=== PATIENT | female | born 1935 | race Caucasian/White ===

== ENCOUNTER 2021-09-16 11:17 | Observation (INO) ==
[2021-09-16 13:55] LABS: BASOPHILS % (AUTO) 0.5 % (0.2-1.0); EOSINOPHILS # (AUTO) 0.3 x10^3/uL (0.0-0.2); EOSINOPHILS % (AUTO) 4.7 % (0.9-2.9); HEMATOCRIT 36.5 % (36.0-47.0); HEMOGLOBIN 12.2 g/dL (12.0-16.0); LYMPHOCYTES # (AUTO) 1.1 X10^3/uL (1.3-2.9); LYMPHOCYTES % (AUTO) 15.6 % (21.0-51.0); MEAN CORPUSCULAR HEMOGLOBIN 29.4 pg (27.0-34.0); MEAN CORPUSCULAR HGB CONC 33.4 g/dL (33.0-35.0); MEAN PLATELET VOLUME 11.4 fL (7.4-11.0); MONOCYTES # (AUTO) 0.7 x10^3/uL (0.3-0.8); MONOCYTES % (AUTO) 9.2 % (0.0-13.0); NEUTROPHILS # (AUTO) 5.1 x10^3/uL (2.2-4.8); RED BLOOD COUNT 4.15 X10^6/uL (3.5-5.4); RED CELL DISTRIBUTION WIDTH 13.8 % (11.6-16.5); WHITE BLOOD COUNT 7.2 X10^3/uL (3.6-10.0)
[2021-09-16] MEDS ORDERED: MORPHINE SULFATE INJ 2 MG INJ ONE (14:17)
[2021-09-16] MEDS: MORPHINE SULFATE INJ 2 MG INJ IVP PRN (14:20)
[2021-09-16 14:35] LABS: BILIRUBIN,URINE NEGATIVE (NEGATIVE); BLOOD/HEMOGLOBIN,URINE 1+ (NEGATIVE); GLUCOSE, URINE NEGATIVE (NEGATIVE); KETONES,URINE NEGATIVE (NEGATIVE); LEUKOCYTE ESTERASE ,URINE 1+ (NEGATIVE); NITRITES,URINE NEGATIVE (NEGATIVE); PROTEIN,URINE 1+ (NEGATIVE); UROBILINOGEN,URINE NORMAL (NORMAL)
[2021-09-16 14:39] LABS: ALANINE AMINOTRANSFERASE 19 Units/L (12-78); ALBUMIN 3.2 g/dL (3.4-5.0); ALKALINE PHOSPHATASE 87 Units/L (46-116); ASPARTATE AMINO TRANSFERASE 20 Units/L (15-37); BLOOD UREA NITROGEN 18 mg/dL (7-18); CALCIUM 9.1 mg/dL (8.5-10.1); CARBON DIOXIDE 30.5 mmol/L (21-32); CHLORIDE 101 mmol/L (98-107); COR CA(FOR HYPOALB) 9.7 mg/dL (8.5-10.1); CREATININE 0.98 mg/dL (0.55-1.02); SODIUM 137 mmol/L (136-145); TOTAL PROTEIN 7.2 g/dL (6.4-8.2); eGFR NON BLACK RACES 57 (>60)
[2021-09-16 14:52] LABS: APPEARANCE,URINE CLEAR (CLEAR); COLOR,URINE AMBER (YELLOW)
[2021-09-16 14:56] LABS: BACTERIA,URINE TRACE /HPF (NEGATIVE); SQUAMOUS EPITHELIAL CELL,UR RARE /HPF (NEGATIVE)
--- NOTE | 2021-09-16 15:11 | CT ---
HISTORYRECENT FALL, AMSSTUDYBRAIN W/O CONCOMPARISONNone available.TECHNIQUEAxial non-contrast images of the head were obtained with coronal and sagittal reformats provided.Radiation dose: 1258.70 mGy-cm total DLPFINDINGSNo abnormal areas of acute attenuation in the brain parenchyma.Dillon-white differentiation remains intact.No intracranial, extra-axial, fluid collection.No hemorrhage.Periventricular chronic microvascular disease.No mass, mass effect or midline shift.Age related brain parenchymal global atrophy.No ventriculomegaly.No acute fracture.Sinuses are well aerated.Mastoid air cells are well aerated.Globes and intra-orbital contents are unremarkable.IMPRESSIONNo acute intracranial abnormality identified.Electronically signed by: Fidencio Lynn (September 16, 2021 15:10:39)
--- NOTE | 2021-09-16 15:22 | CT ---
HISTORYRECENT FALL, AMS, PAIN TO PELVIS/HIP AREASTUDYPELVIS W/O CONCOMPARISONRadiographs, September 14, 2021TECHNIQUENon-contrast axial CT images of the pelvis. Images were reformatted into coronal and sagittal planes for further evaluation.Radiation dose: 913.50 mGy-cm total DLPFINDINGSMildly displaced/impacted right subcapital femoral neck fracture.Atherosclerotic changes to the abdominal aorta and iliac vessels without aneurysm.Colonic diverticulosis.Mild degenerative disc and joint changes in the lower lumbar spine.IMPRESSIONMildly displaced/impacted right subcapital femoral neck fracture.Electronically signed by: Fidencio Lynn (September 16, 2021 15:22:46)
[2021-09-16] MEDS: NAMENDA TAB 10 MG PO SCH (16:35)
[2021-09-16] MEDS ORDERED: TYLENOL 325 MG TAB PO PRN (20:48)
[2021-09-16] MEDS ORDERED: COLACE CAP 100 MG PO SCH (21:00)
[2021-09-16] MEDS ORDERED: XANAX PO SCH (21:00)
[2021-09-16] MEDS ORDERED: MELATONIN PO SCH (21:00)
[2021-09-16] MEDS ORDERED: ARICEPT TAB 10 MG PO SCH (21:00)
[2021-09-17] MEDS ORDERED: SYNTHROID 50 mcg TAB PO SCH (06:30)
[2021-09-17 09:29] VITALS: BMI 23.6
--- NOTE | 2021-09-17 10:00 | DR.SSS ---
SHORT STAY SUMMARY Admission Date Date of Admission: 09/16/21 Discharge Date Discharge Date: 09/17/21 Admission Diagnoses Admission Diagnoses: AMS Fall Discharge Diagnoses Discharge Diagnoses: right femoral neck fracture altered mental status dementia Chief Complaint Chief Complaint: AMS and right hip pain History of Present Illness History of Present Illness: Ms Laila Man is a 86y/o female with a PMH of alzheimer's dementia, arthritis and hypothyroidism presented after having a fall at home on Sun09/14/21. Patient lives at home with a sitter. EMS was called and patient was taken to [facility] ER. She had a small laceration to the head to CT- brain was done which was negative. Patient was sent home but continued to have worsening confusion and right hip/leg pain. She was directly admitted from Dr Escobedo's [facility] for further evaluation. Pelvic CT showed right subcapital femoral neck fracture. No ortho nutrition services worker at [facility]. Patient was started on pain control. Dr Lockhart from [facility] was contacted and accepted patient for transfer for surgery. Initially, patient's daughter declined transfer and wanted to discuss with family regarding risks associated with surgery as patient does have dementia. This morning, family agreed to transfer and transfer line was contacted. Past Medical History Past Medical History: Alzheimers, Arthritis and Hypothyroidism Past Surgical History Surgical History: Hysterectomy and Ortho Surgery Allergies Allergies Allergy/AdvReac Type Severity Reaction Status Date / Time Penicillins Allergy Verified 07/06/20 12:46 Medications Home Medications: Penicillins Allergy (Verified 07/06/20 12:46) CONTINUE taking the following medications alprazolam 1 mg PO DAILY PRN 09/16/21 [History] donepezil 10 mg PO HS 09/16/21 [History] levothyroxine 50 mcg PO DAILY 09/16/21 [History] melatonin 10 mg PO HS 09/16/21 [History] memantine 10 mg PO DAILY 09/16/21 [History] Social History Does patient currently use any type of tobacco product: No Have you used tobacco products in the last 12 months: No Type of Tobacco Use: None Alcohol Use: None Drug Use: None Review of Systems Constitutional: No Symptoms Reported Eyes: No Symptoms Reported ENT: No Symptoms Reported Respiratory: No Symptoms Reported Cardiovascular: No Symptoms Reported Gastrointestinal: No Symptoms Reported Genitourinary: No Symptoms Reported Musculoskeletal: Leg Pain and Other (right hip ) Neurological: Confusion Physical Exam Vital Signs: Last Vital Signs Temp 97.9 F 09/17/21 03:52 Pulse 70 09/17/21 03:52 Resp 18 09/17/21 03:52 BP 169/73 09/17/21 03:52 Pulse Ox 95 09/17/21 03:52 Oriented: Not Oriented Eyes: Normal Ear: Normal Nose: Normal Throat: Normal Respiratory: Diminished Throughout Cardiovascular: Normal Auscultation: Bowel Sounds: Normal Palpation: Normal Tenderness: Normal Skin: Normal Musculoskeletal: Right and Hip Psychiatric: Normal Mood Description: Calm Affect: Normal Speech Pattern: Delayed Labs Labs: Laboratory Last Values WBC 7.2 X10^3/uL (3.6-10.0) 09/16/21 13:40 RBC 4.15 X10^6/uL (3.5-5.4) 09/16/21 13:40 Hgb 12.2 g/dL (12.0-16.0) 09/16/21 13:40 Hct 36.5 % (36.0-47.0) 09/16/21 13:40 MCV 88.0 fL (80.0-100.0) 09/16/21 13:40 MCH 29.4 pg (27.0-34.0) 09/16/21 13:40 MCHC 33.4 g/dL (33.0-35.0) 09/16/21 13:40 RDW 13.8 % (11.6-16.5) 09/16/21 13:40 Plt Count 181 X10^3/uL (150.0-450.0) 09/16/21 13:40 MPV 11.4 fL (7.4-11.0) H 09/16/21 13:40 Neut % (Auto) 70.0 % (42.0-75.0) 09/16/21 13:40 Lymph % (Auto) 15.6 % (21.0-51.0) L 09/16/21 13:40 [place] % (Auto) 9.2 % (0.0-13.0) 09/16/21 13:40 Eos % (Auto) 4.7 % (0.9-2.9) H 09/16/21 13:40 Baso % (Auto) 0.5 % (0.2-1.0) 09/16/21 13:40 Neut # (Auto) 5.1 x10^3/uL (2.2-4.8) H 09/16/21 13:40 Lymph # (Auto) 1.1 X10^3/uL (1.3-2.9) L 09/16/21 13:40 [place] # (Auto) 0.7 x10^3/uL (0.3-0.8) 09/16/21 13:40 Eos # (Auto) 0.3 x10^3/uL (0.0-0.2) H 09/16/21 13:40 Baso # (Auto) 0.0 X10^3/uL (0.0-0.1) 09/16/21 13:40 Absolute Nucleated RBC 0.1 /100WBC 09/16/21 13:40 Sodium 137 mmol/L (136-145) 09/16/21 14:15 Corrected Sodium TNP 09/16/21 14:15 Potassium 4.0 mmol/L (3.5-5.1) 09/16/21 14:15 Chloride 101 mmol/L (98-107) 09/16/21 14:15 Carbon Dioxide 30.5 mmol/L (21-32) 09/16/21 14:15 BUN 18 mg/dL (7-18) 09/16/21 14:15 Creatinine 0.98 mg/dL (0.55-1.02) 09/16/21 14:15 Est GFR (MDRD) Af Amer > 60 (>60) 09/16/21 14:15 Est GFR (MDRD) Non-Af 57 (>60) L 09/16/21 14:15 Glucose 99 mg/dL (65-99) 09/16/21 14:15 Calcium 9.1 mg/dL (8.5-10.1) 09/16/21 14:15 Corrected Calcium 9.7 mg/dL (8.5-10.1) 09/16/21 14:15 Total Bilirubin 0.60 mg/dL (0.2-1.0) 09/16/21 14:15 AST 20 Units/L (15-37) 09/16/21 14:15 ALT 19 Units/L (12-78) 09/16/21 14:15 Alkaline Phosphatase 87 Units/L (46-116) 09/16/21 14:15 Total Protein 7.2 g/dL (6.4-8.2) 09/16/21 14:15 Albumin 3.2 g/dL (3.4-5.0) L 09/16/21 14:15 Globulin 4.0 g/dL (2.5-4.5) 09/16/21 14:15 Albumin/Globulin Ratio 0.8 Ratio (1.1-2.1) L 09/16/21 14:15 Specimen Type Catherized urine 09/16/21 14:00 Urine Color Tisha (YELLOW) 09/16/21 14:00 Urine Appearance Clear (CLEAR) 09/16/21 14:00 Urine pH 5.0 (5.0 - 8.0) 09/16/21 14:00 Ur Specific [place] 1.030 (1.000-1.030) 09/16/21 14:00 Urine Protein 1+ (NEGATIVE) 09/16/21 14:00 Urine Glucose (UA) Negative (NEGATIVE) 09/16/21 14:00 Urine Ketones Negative (NEGATIVE) 09/16/21 14:00 Urine Blood 1+ (NEGATIVE) 09/16/21 14:00 Urine Nitrite Negative (NEGATIVE) 09/16/21 14:00 Urine Bilirubin Negative (NEGATIVE) 09/16/21 14:00 Urine Urobilinogen Normal (NORMAL) 09/16/21 14:00 Ur Leukocyte Esterase 1+ (NEGATIVE) 09/16/21 14:00 Urine RBC 3-5 /HPF (0-3) A 09/16/21 14:00 Urine WBC 0-2 /HPF (0-5) 09/16/21 14:00 Ur Squamous Epith Cells Rare /HPF (NEGATIVE) 09/16/21 14:00 Amorphous Sediment 1+ /HPF (NEGATIVE) 09/16/21 14:00 Urine Bacteria Trace /HPF (NEGATIVE) 09/16/21 14:00 Ur Culture Indicated? No/not indicated 09/16/21 14:00 SARS-CoV-2 (PCR) Negative (NEGATIVE) 09/16/21 14:25 Hospital Course Hospital Course: Patient admitted after having a fall and confusion. Pelvic CT on admission showed right femoral neck fracture. Brain-CT negative for acute process. Lumbar and Thoracic CT pending. Orthopedic surgeon at [facility] was contacted and accepted patient for transfer. Patient's family had initially refused transfer and wanted to wait till the morning to discuss. Family agreed to transfer this morning. Transfer line contacted and patient accepted by hospitalist and orthopedic. Patient stable for transfer. Discharge Medications Discharge Medications: Home Medication List alprazolam 1 mg PO DAILY PRN 09/16/21 [History] donepezil 10 mg PO HS 09/16/21 [History] levothyroxine 50 mcg PO DAILY 09/16/21 [History] melatonin 10 mg PO HS 09/16/21 [History] memantine 10 mg PO DAILY 09/16/21 [History] Prescriptions: Discharge Disposition Discharge Disposition: [facility]
[2021-09-17] MEDS: NAMENDA TAB 10 MG PO SCH (10:30)
[2021-09-17] MEDS: MORPHINE SULFATE INJ 2 MG INJ IVP PRN (11:37)
[2021-09-17 12:11] VITALS: BP 139/68
--- NOTE | 2021-09-17 15:53 | CT ---
HISTORYRECENT FALL, AMSSTUDYTHORACIC SPINE W/O CONCOMPARISONNone available.TECHNIQUENon-contrast axial CT images of the thoracic spine with sagittal and coronal reformats.Radiation dose: 1558.50 mGy-cm total DLP.FINDINGSVertebral body heights are maintained with normal alignment.Mild multilevel degenerative disc disease.No significant central canal stenosis.No significant neuroforaminal narrowing.No fracture identified.8 mm calculus near the left UPJ.Nonobstructing 2 mm right nephrolith.Lungs are clear focal airspace disease.Soft tissues are unremarkable.IMPRESSION1. Multilevel mild degenerative disc disease. No acute thoracic spine abnormality.2. 8 mm calculus near the left UPJ with mild obstructive uropathy.Electronically signed by: Fidencio Lynn (September 17, 2021 15:52:53)
--- NOTE | 2021-09-17 15:56 | CT ---
HISTORYRECENT FALL, AMSSTUDYLUMBAR SPINE W/O CONCOMPARISONNone available.TECHNIQUENon-contrast axial CT images of the lumbar spine with sagittal and coronal reformats.Radiation dose: 1905.30 mGy-cm total DLP.FINDINGSVertebral body heights are maintained with normal alignment.Mild multilevel degenerative disc and joint disease.No significant central canal stenosis.Mild bilateral neural foraminal narrowing from L3-S1.No fracture identified.8 mm calculus at the left UPJ with mild left hydronephrosis.Nonobstructing 2 mm right nephrolith.Remainder of the imaged portion of the intra-abdominal soft tissue structures is unremarkable.Soft tissues are unremarkable.IMPRESSION1. No acute abnormality identified.2. Chronic changes as described above.3. 8 mm calculus at the left UPJ with mild left hydronephrosis.Electronically signed by: Fidencio Lynn (September 17, 2021 15:55:58)
== END 2021-09-17 13:46 | disposition short-term general hospital (02) ==
LOC: MED/SURG
PROVIDERS: ADMIT Internal Medicine; ATTEND Internal Medicine
DX: R29.6 Repeated falls; E03.8 Other specified hypothyroidism; M25.551 Pain in right hip; W18.39XA Other fall on same level, initial encounter; S72.011A Unspecified intracapsular fracture of right femur, initial encounter for closed fracture; F02.81 Dementia in other diseases classified elsewhere, unspecified severity, with behavioral disturbance; G30.8 Other Alzheimer's disease; I95.89 Other hypotension; Z66 Do not resuscitate; R41.82 Altered mental status, unspecified; Z20.822 Contact with and (suspected) exposure to COVID-19

== ENCOUNTER 2022-05-29 11:46 | Inpatient (IN) ==
[2022-05-29] MEDS ORDERED: NS 1,000 ML IV 250 ML IV ONE (13:23)
--- NOTE | 2022-05-29 13:33 | EKG ---
Test Reason : CHEST PAIN, ABNORMAL EKG Blood Pressure : */* mmHG Vent. Rate : 76 BPM Atrial Rate : 76 BPM P-R Int : 152 ms QRS Dur : 86 ms QT Int : 366 ms P-R-T Axes : 54 -9 30 degrees QTc Int : 411 ms Normal sinus rhythm Septal infarct , age undetermined Abnormal ECG No previous ECGs available Confirmed by Srinivasan Pryor (4) on 05/30/2022 7:40:44 AM Referred By: Confirmed By: Srinivasan Pryor
[2022-05-29 13:55] LABS: BILIRUBIN,URINE NEGATIVE (NEGATIVE); BLOOD/HEMOGLOBIN,URINE 4+ (NEGATIVE); GLUCOSE, URINE NEGATIVE (NEGATIVE); KETONES,URINE NEGATIVE (NEGATIVE); LEUKOCYTE ESTERASE ,URINE 1+ (NEGATIVE); NITRITES,URINE NEGATIVE (NEGATIVE); PROTEIN,URINE 2+ (NEGATIVE); UROBILINOGEN,URINE NORMAL (NORMAL)
[2022-05-29 13:58] LABS: BASOPHILS # (AUTO) 0.1 X10^3/uL (0.0-0.1); BASOPHILS % (AUTO) 0.7 % (0.2-1.0); EOSINOPHILS % (AUTO) 0.3 % (0.9-2.9); HEMATOCRIT 37.6 % (36.0-47.0); HEMOGLOBIN 12.4 g/dL (12.0-16.0); LYMPHOCYTES # (AUTO) 1.5 X10^3/uL (1.3-2.9); LYMPHOCYTES % (AUTO) 17.9 % (21.0-51.0); MEAN CORPUSCULAR HEMOGLOBIN 29.8 pg (27.0-34.0); MEAN CORPUSCULAR HGB CONC 33.1 g/dL (33.0-35.0); MEAN PLATELET VOLUME 10.2 fL (7.4-11.0); MONOCYTES # (AUTO) 0.6 x10^3/uL (0.3-0.8); MONOCYTES % (AUTO) 7.3 % (0.0-13.0); NEUTROPHILS # (AUTO) 6.1 x10^3/uL (2.2-4.8); NEUTROPHILS % (AUTO) 73.8 % (42.0-75.0); RED BLOOD COUNT 4.18 X10^6/uL (3.5-5.4); RED CELL DISTRIBUTION WIDTH 14.3 % (11.6-16.5); WHITE BLOOD COUNT 8.3 X10^3/uL (3.6-10.0)
[2022-05-29 14:03] LABS: APPEARANCE,URINE HAZY (CLEAR); BACTERIA,URINE TRACE /HPF (NEGATIVE); COLOR,URINE YELLOW (YELLOW); RBC,URINE TNTC /HPF (0-3); SQUAMOUS EPITHELIAL CELL,UR RARE /HPF (NEGATIVE)
[2022-05-29 14:04] LABS: HYALINE CASTS, URINE RARE /LPF (NEGATIVE)
[2022-05-29 14:08] LABS: ALANINE AMINOTRANSFERASE 22 Units/L (12-78); ALBUMIN 3.8 g/dL (3.4-5.0); ALKALINE PHOSPHATASE 80 Units/L (46-116); AMYLASE 77 Units/L (25-115); ASPARTATE AMINO TRANSFERASE 86 Units/L (15-37); BLOOD UREA NITROGEN 21 mg/dL (7-18); CALCIUM 9.3 mg/dL (8.5-10.1); CARBON DIOXIDE 27.4 mmol/L (21-32); CHLORIDE 99 mmol/L (98-107); COR NA(FOR HYPERGLY) 134 mmol/L (136-145); CREATINE KINASE 503 Units/L (26-192); LIPASE 155 Units/L (73-393); SODIUM 133 mmol/L (136-145); TOTAL PROTEIN 7.6 g/dL (6.4-8.2); eGFR NON BLACK RACES 50 (>60)
[2022-05-29] MEDS: PROTONIX INJ 40 MG VIAL IVP SCH (14:08)
[2022-05-29] MEDS: NS 1,000 ML IV 1,000 ML IV SCH (15:15)
[2022-05-29] MEDS ORDERED: HEPARIN SODIUM INJ 5000 UNITS ONE (16:26)
[2022-05-29] MEDS ORDERED: HEPARIN SODIUM INJ 5000 UNITS IVP ONE (16:30)
[2022-05-29] MEDS: LOPRESSOR TAB 25 MG PO SCH ×2 (16:50→20:49)
[2022-05-29] MEDS: LIPITOR TAB 40 MG PO SCH ×2 (16:50→20:48)
[2022-05-29 16:52] LABS: INR 1.04 (0.8-1.3)
--- NOTE | 2022-05-29 16:54 | EKG ---
Test Reason : CHEST PAIN Blood Pressure : */* mmHG Vent. Rate : 79 BPM Atrial Rate : 79 BPM P-R Int : 130 ms QRS Dur : 94 ms QT Int : 376 ms P-R-T Axes : 14 39 14 degrees QTc Int : 431 ms Normal sinus rhythm Low voltage QRS Septal infarct (cited on or before 29-MAY-2022) Marked ST abnormality, possible inferior subendocardial injury Abnormal ECG When compared with ECG of 29-MAY-2022 13:24, (Unconfirmed) ST depression has replaced ST elevation in Lateral leads Confirmed by Srinivasan Pryor (4) on 05/30/2022 7:38:58 AM Referred By: Confirmed By: Srinivasan Pryor
[2022-05-29] MEDS: HEPARIN SODIUM IN D5W 25,000 UNITS/500 ML BAG IV PRN (17:30)
[2022-05-29] MEDS: ARICEPT TAB 10 MG PO SCH (20:48)
[2022-05-29] MEDS: MOBIC TAB 15 MG PO SCH (20:49)
[2022-05-29] MEDS: NAMENDA TAB 10 MG PO SCH (20:51)
[2022-05-29] MEDS ORDERED: SEROquel TAB 25 mg PO SCH (21:00)
--- NOTE | 2022-05-29 22:09 | EKG ---
Test Reason : CHEST PAIN Blood Pressure : */* mmHG Vent. Rate : 69 BPM Atrial Rate : 69 BPM P-R Int : 142 ms QRS Dur : 92 ms QT Int : 410 ms P-R-T Axes : -9 20 105 degrees QTc Int : 439 ms Normal sinus rhythm Low voltage QRS Septal infarct (cited on or before 29-MAY-2022) Possible Lateral infarct , age undetermined Abnormal ECG When compared with ECG of 29-MAY-2022 16:46, (Unconfirmed) Borderline criteria for Lateral infarct are now present ST no longer depressed in Inferior leads ST no longer depressed in Anterolateral leads Nonspecific T wave abnormality, worse in Lateral leads Confirmed by Srinivasan Pryor (4) on 05/30/2022 7:38:28 AM Referred By: Confirmed By: Srinivasan Pryor
[2022-05-29] MEDS ORDERED: ASPIRIN PO ONE (22:22)
[2022-05-29] MEDS ORDERED: NITRO-BID OINT 2% Multi-Dose tube TD SCH (23:00)
[2022-05-30] MEDS ORDERED: VISTARIL PO PRN (00:34)
--- NOTE | 2022-05-30 01:29 | EKG ---
Test Reason : Chestv Pain Blood Pressure : */* mmHG Vent. Rate : 60 BPM Atrial Rate : 60 BPM P-R Int : 168 ms QRS Dur : 94 ms QT Int : 444 ms P-R-T Axes : 55 25 107 degrees QTc Int : 444 ms Normal sinus rhythm Low voltage QRS Septal infarct , age undetermined Possible Lateral infarct , age undetermined Abnormal ECG Confirmed by Srinivasan Pryor (4) on 05/30/2022 7:38:01 AM Referred By: Confirmed By: Srinivasan Pryor
[2022-05-30] MEDS: NITRO-BID OINT 2% Multi-Dose tube TD SCH ×4 (06:09→23:18)
[2022-05-30] MEDS: SYNTHROID 50 mcg TAB PO SCH (06:10)
[2022-05-30] MEDS: NS 1,000 ML IV 1,000 ML IV SCH ×3 (06:10→20:35)
--- NOTE | 2022-05-30 06:25 | EKG ---
Test Reason : CHEST PAIN Blood Pressure : */* mmHG Vent. Rate : 66 BPM Atrial Rate : 66 BPM P-R Int : 134 ms QRS Dur : 94 ms QT Int : 416 ms P-R-T Axes : 2 6 79 degrees QTc Int : 436 ms Normal sinus rhythm Low voltage QRS Septal infarct , age undetermined Abnormal ECG Confirmed by Srinivasan Pryor (4) on 05/30/2022 7:37:22 AM Referred By: Confirmed By: Srinivasan Pryor
[2022-05-30 06:44] LABS: BASOPHILS % (AUTO) 0.3 % (0.2-1.0); EOSINOPHILS % (AUTO) 0.4 % (0.9-2.9); HEMATOCRIT 32.7 % (36.0-47.0); HEMOGLOBIN 10.9 g/dL (12.0-16.0); LYMPHOCYTES # (AUTO) 1.4 X10^3/uL (1.3-2.9); MEAN CORPUSCULAR HEMOGLOBIN 29.7 pg (27.0-34.0); MEAN CORPUSCULAR HGB CONC 33.4 g/dL (33.0-35.0); MEAN PLATELET VOLUME 10.4 fL (7.4-11.0); MONOCYTES # (AUTO) 0.7 x10^3/uL (0.3-0.8); MONOCYTES % (AUTO) 9.6 % (0.0-13.0); NEUTROPHILS # (AUTO) 5.5 x10^3/uL (2.2-4.8); NEUTROPHILS % (AUTO) 71.7 % (42.0-75.0); RED BLOOD COUNT 3.68 X10^6/uL (3.5-5.4); RED CELL DISTRIBUTION WIDTH 14.3 % (11.6-16.5); WHITE BLOOD COUNT 7.6 X10^3/uL (3.6-10.0)
--- NOTE | 2022-05-30 06:57 | RAD ---
HISTORYCHEST PAIN, ABNORMAL EKGSTUDYCHEST, 1 VIEWCOMPARISONNoneFINDINGSThe cardiomediastinal silhouette is normal in size. No acute airspace disease. No pneumothorax or effusion. The bony thorax appears intact.IMPRESSIONNo acute cardiopulmonary disease.Electronically signed by: HAN SWIFT (May 30, 2022 06:56:48)
[2022-05-30 07:07] LABS: ALANINE AMINOTRANSFERASE 31 Units/L (12-78); ALBUMIN 3.1 g/dL (3.4-5.0); ALKALINE PHOSPHATASE 71 Units/L (46-116); ASPARTATE AMINO TRANSFERASE 206 Units/L (15-37); BLOOD UREA NITROGEN 15 mg/dL (7-18); CALCIUM 8.3 mg/dL (8.5-10.1); CARBON DIOXIDE 25.8 mmol/L (21-32); CHLORIDE 100 mmol/L (98-107); COR NA(FOR HYPERGLY) 132 mmol/L (136-145); CREATININE 0.89 mg/dL (0.55-1.02); SODIUM 132 mmol/L (136-145); TOTAL PROTEIN 6.3 g/dL (6.4-8.2); eGFR NON BLACK RACES > 60 (>60)
[2022-05-30 07:14] LABS: CREATINE KINASE 1464 Units/L (26-192)
[2022-05-30] MEDS: LOPRESSOR TAB 25 MG PO SCH ×2 (08:43→20:43)
[2022-05-30] MEDS: MOBIC TAB 15 MG PO SCH ×2 (08:43→20:43)
[2022-05-30] MEDS: PROTONIX INJ 40 MG VIAL IVP SCH (08:43)
[2022-05-30] MEDS ORDERED: SEROquel TAB 25 mg PO SCH (09:00)
--- NOTE | 2022-05-30 09:16 | EKG ---
Test Reason : CHEST PAIN Blood Pressure : */* mmHG Vent. Rate : 65 BPM Atrial Rate : 65 BPM P-R Int : 134 ms QRS Dur : 90 ms QT Int : 430 ms P-R-T Axes : 4 -9 79 degrees QTc Int : 447 ms Normal sinus rhythm Septal infarct (cited on or before 29-MAY-2022) Abnormal ECG When compared with ECG of 30-MAY-2022 05:37, No significant change was found Confirmed by Srinivasan Pryor (4) on 06/02/2022 2:45:27 PM Referred By: Confirmed By: Srinivasan Pryor
[2022-05-30] MEDS ORDERED: MORPHINE SULFATE INJ 2 MG INJ IVP PRN (10:21)
--- NOTE | 2022-05-30 12:50 | DR.H&P ---
H&P - History & Physical for Day of: H&P Date: 05/29/22 - Chief Complaint Chief Complaint: CHEST PAIN, ABDOMINAL PAIN, LEFT ARM PAIN, NECK PAIN, NAUSEA, AND VOMITING - History of Present Illness History of Present Illness: IS A 87 YEAR OLD PATIENT OF OURS WHO WAS ADMITTED TO THE HOSPITAL FOR CHEST PAIN, RULE OUT ACUTE IL. ADDITIONALLY, PATIENT COMPLAINED OF ABDOMINAL PAIN, LEFT ARM PAIN, NECK PAIN, NAUSEA, AND VOMITING. HER SYMPTOMS REPORTEDLY STARTED TWO DAYS PRIOR. PATIENT IS A RESIDENT OF [facility]. HER PMH INCLUDES: ADVANCED DEMENTIA, ALZHEIMERS, ARTHRITIS, HYPOTHYROIDISM, HYSTERECTOMY, LEFT FEMUR SURGERY, RIGHT WRIST SURGERY. PATIENT DENIES A CARDIAC HISTORY. ON ARRIVAL TO THE HOSPITAL, HER VITALS WERE: 97.6-81-20-98%-169/79. LABS WERE OBTAINED. WBC 8.3, RBC 4.18, HGB 12.4, HCT 37.6, PLT COUNT 204, PT 13.3, INR 1.04, PTT 29.1, SODIUM 133, POTASSIUM 4.6, CHLORIDE 99, CARBON DIOXIDE 27.4, BUN 21, CREATININE 1.10, GLUCOSE 129, CALCIUM 9.3, TOTAL BILI 0.30, AST 86, ALT 22, ALK PHOS 80, CREATINE KINASE 503, TROPONIN 4747.8, BNP 396, TOTAL PROTEIN 7.6, ALBUMIN 3.8, AMYLASE 77, LIPASE 155. A URINALYSIS WAS OBTAINED AND REVEALED: WBC 3-5, RBC TNTC, LEUKOCYTES 1+, BACTERIA TRACE, BLOOD 4+. A CHEST XRAY WAS OBTAINED AND REVEALED: NO ACUTE CARDIOPULMONARY DISEASE. EKG REVEALED: NSR, SEPTAL INFARCT, HR 65 BPM. PATIENT WAS STARTED ON NORMAL SALINE AT 75 ML/HR, HEPARIN IV DRIP, PROTONIX 40MG IV DAILY. METOPROLOL TARTRATE 25MG PO BID, ATORVASTATIN 40MG PO HS, NITRO-BID OINTMENT Q8H, MORPHINE 2MG IV Q4H PRN, VISTARIL 25-50MG PO Q8H PRN. HER HOME MEDICATIONS OF ARICEPT, ATIVAN, MOBIC, NAMENDA, AND SEROQUEL WERE RESUMED. WE DISCUSSED TEST RESULTS WITH PATIENTS DAUGHTER. WE DISCUSSED THE POSSIBILTY OF TRANSFER, HOWEVER, THEY ELECTED TO STAY AT THIS FACILITY FOR TREATMENT AND DECLINED TRANSFER FOR CATHETERIZATION. WE WILL REPEAT SERIAL CARDIAC ENZYMES AND EKGS. OTHERWISE, WE WILL FOLLOW-UP WITH AM LABS AND CONTINUE TO MONITOR. TIME SPENT ON CLINICAL ASSESSMENT, REVIWING LABS AND IMAGING, DECISION MAKING, AND DOCUMENTATION GREATER THAN 75 MINUTES. - Past Medical History Past Medical History: Alzheimers, Arthritis, Dementia, Dyslipidemia, Hypothyroidism - Past Surgical History Surgical History: Hysterectomy, Ortho Surgery, Other - Social History Does patient currently use any type of tobacco product: No Have you used tobacco products in the last 12 months: No Type of Tobacco Use: None Does any household member use tobacco: No Alcohol Use: None Drug Use: Prescription Drugs - Medications Home Medications: Penicillins Allergy (Verified 05/29/22 13:55) CONTINUE taking the following medications donepezil 10 mg tablet 10 mg PO HS 05/29/22 [History] ergocalciferol (vitamin D2) 1,250 mcg (50,000 unit) capsule (Vitamin D2) 1,250 mcg PO WEEKLY 05/29/22 [History] levothyroxine 50 mcg tablet 50 mcg PO DAILY 05/29/22 [History] lorazepam 1 mg tablet 1 mg PO 1400 05/29/22 [History] meloxicam 7.5 mg tablet 7.5 mg PO BID 05/29/22 [History] memantine 10 mg tablet 10 mg PO HS 05/29/22 [History] quetiapine 25 mg tablet 25 mg PO DAILY 05/29/22 [History] quetiapine 50 mg tablet 50 mg PO HS 05/29/22 [History] - Review of Systems Constitutional: Weakness Eyes: No Symptoms Reported ENT: No Symptoms Reported Respiratory: No Symptoms Reported Cardiovascular: Chest Pain Gastrointestinal: Nausea, Vomiting, Abdominal Pain Musculoskeletal: Arm Pain (LEFT ARM PAIN ), Neck Pain (LEFT SIDE NECK PAIN ) Skin: No Symptoms Reported Neurological: Weakness, Confusion - Physical Exam Vital Signs: Temperature 98.0 F Pulse Rate [Left Brachial] 81 Pulse Rate 61 Respiratory Rate 20 Blood Pressure [Left Arm] 169/79 Blood Pressure [Right Arm] 139/68 Blood Pressure 157/89 O2 Sat by Pulse Oximetry 98 Oriented: Not Oriented Eyes: Normal Ear: Normal Nose: Normal Throat: Normal Respiratory: Diminished Throughout Cardiovascular: Normal : Normal Auscultation: Bowel Sounds: Normal Palpation: Normal Tenderness: Epigastric Skin: Normal Musculoskeletal: Arm, Tender Psychiatric: Agitation Mood Description: Anxious Affect: Anxious Speech Pattern: Inappropriate - Assessment/Plan (1) Acute myocardial infarction Qualifiers: Myocardial infarction type: unspecified Involved coronary artery: unspeci fied coronary artery Qualified Code(s): I21.9 - Acute myocardial infarction, unspecified Status: Acute Plan: ADMIT, SERIAL CARDIAC ENZYMES AND EKG, NORMAL SALINE AT 75 ML/HR, HEPARIN IV DRIP, PROTONIX 40MG IV DAILY. METOPROLOL TARTRATE 25MG PO BID, ATORVASTATIN 40MG PO HS, NITRO-BID OINTMENT Q8H, MORPHINE 2MG IV Q4H PRN, VISTARIL 25-50MG PO Q8H PRN. RESUME HOME MEDS (2) Advanced dementia Qualifiers: Dementia type: vascular dementia Dementia behavioral or psychological symptom: with agitation Qualified Code(s): F01.C11 - Vascular dementia, severe, with agitation Status: Chronic (3) Hypothyroidism Qualifiers: Hypothyroidism type: acquired Qualified Code(s): E03.9 - Hypothyroidism, unspecified Status: Chronic (4) Arthritis Status: Chronic - Allergies Allergies/Adverse Reactions: Allergies Allergy/AdvReac Type Severity Reaction Status Date / Time Penicillins Allergy Verified 05/29/22 13:55
[2022-05-30] MEDS ORDERED: NITRO-BID OINT 2% UD (E.R. USE ONLY) ONE (12:59)
[2022-05-30] MEDS: ATIVAN INJ 2 MG VIAL IVP PRN (13:00)
[2022-05-30] MEDS ORDERED: ATIVAN TAB 1 MG PO SCH (14:00)
[2022-05-30] MEDS ORDERED: LASIX IVP ONE (17:34)
[2022-05-30] MEDS: LASIX IVP SCH (17:39)
[2022-05-30] MEDS: LIPITOR TAB 40 MG PO SCH (20:42)
[2022-05-30] MEDS: SEROquel TAB 25 mg PO SCH (20:42)
[2022-05-30] MEDS: NAMENDA TAB 10 MG PO SCH (20:43)
[2022-05-30] MEDS: ARICEPT TAB 10 MG PO SCH (20:43)
[2022-05-31 02:48] LABS: BASOPHILS # (AUTO) 0.1 X10^3/uL (0.0-0.1); BASOPHILS % (AUTO) 0.8 % (0.2-1.0); EOSINOPHILS % (AUTO) 0.1 % (0.9-2.9); HEMATOCRIT 29.9 % (36.0-47.0); HEMOGLOBIN 10.2 g/dL (12.0-16.0); LYMPHOCYTES # (AUTO) 1.2 X10^3/uL (1.3-2.9); MEAN CORPUSCULAR HEMOGLOBIN 30.3 pg (27.0-34.0); MEAN PLATELET VOLUME 10.3 fL (7.4-11.0); MONOCYTES # (AUTO) 1.2 x10^3/uL (0.3-0.8); MONOCYTES % (AUTO) 12.2 % (0.0-13.0); NEUTROPHILS # (AUTO) 7.6 x10^3/uL (2.2-4.8); NEUTROPHILS % (AUTO) 74.9 % (42.0-75.0); RED BLOOD COUNT 3.36 X10^6/uL (3.5-5.4); RED CELL DISTRIBUTION WIDTH 14.1 % (11.6-16.5); WHITE BLOOD COUNT 10.2 X10^3/uL (3.6-10.0)
[2022-05-31 03:04] LABS: ALANINE AMINOTRANSFERASE 46 Units/L (12-78); ALBUMIN 2.9 g/dL (3.4-5.0); ALKALINE PHOSPHATASE 68 Units/L (46-116); ASPARTATE AMINO TRANSFERASE 389 Units/L (15-37); BLOOD UREA NITROGEN 14 mg/dL (7-18); CALCIUM 8.1 mg/dL (8.5-10.1); CARBON DIOXIDE 24.7 mmol/L (21-32); CHLORIDE 98 mmol/L (98-107); COR NA(FOR HYPERGLY) 131 mmol/L (136-145); CREATININE 0.96 mg/dL (0.55-1.02); SODIUM 130 mmol/L (136-145); eGFR NON BLACK RACES 59 (>60)
[2022-05-31] MEDS: SYNTHROID 50 mcg TAB PO SCH (06:18)
[2022-05-31] MEDS: NITRO-BID OINT 2% Multi-Dose tube TD SCH ×3 (06:30→23:03)
[2022-05-31] MEDS: PROTONIX INJ 40 MG VIAL IVP SCH (08:41)
[2022-05-31] MEDS: NS 1,000 ML IV 1,000 ML IV SCH ×2 (08:41→23:04)
[2022-05-31] MEDS: MOBIC TAB 15 MG PO SCH ×2 (08:41→21:35)
[2022-05-31] MEDS: LOPRESSOR TAB 25 MG PO SCH ×2 (08:41→21:35)
[2022-05-31] MEDS: LASIX IVP SCH ×3 (08:41→16:59)
[2022-05-31] MEDS: SEROquel TAB 25 mg PO SCH ×2 (08:42→21:35)
[2022-05-31] MEDS: HEPARIN SODIUM IN D5W 25,000 UNITS/500 ML BAG IV PRN (12:11)
--- NOTE | 2022-05-31 13:13 | PCM.PROG ---
Progress Note - Progress Note for Day of Date of Exam: 05/31/22 - Subjective Subjective: IS CURRENTLY INPATIENT STATUS FOR TREATMENT OF ACUTE MYOCARDIAL INFARCTION AND CONGESTIVE HEART FAILURE. SHE HAS A PMH OF ADVANCED DEMENTIA, ALZHEIMERS, ARTHRITIS, AND HYPOTHYROIDISM. TODAY, SHE IS LYING IN BED WITH EYES CLOSED ON MORNING ROUNDS. SHE OPENS EYES TO VERBAL STIMULI AND R ESPONDS VERBALLY, BUT DOES NOT FOLLOW COMMANDS. SHE IS DISORIENTED. HER FAMILY REPORTS THAT SHE RESTED WELL THROUGHOUT THE NIGHT. ON EXAMINATION, HEART IS REGULAR IN RATE AND RHYTHM. BILATERAL LUNGS ARE NOTED WITH DIMINISHED LUNG SOUNDS THROUGHOUT. ABDOMEN IS ROUND, SOFT, AND NON-TENDER WITH NORMAL BOWEL SOUNDS NOTED IN ALL QUADRANTS. TRACE LOWER EXTREMITY EDEMA NOTED. HER VITALS THIS MORNING ARE: 98.6-70-21-100%-139/66. LABS WERE OBTAINED. WBC 10.2, RBC 3.36, HGB 10.2, HCT 29.9, PTT 72.7, SODIUM 130, POTASSIUM 3.9, CHLORIDE 98, BUN 14, CREATININE 0.96, GLUCOSE 127, CALCIUM 8.1, TOTAL BILI 0.50, AST 389, ALT 46, ALK PHOS 68, TOTAL PROTEIN 6.0, ALBUMIN 2.9, BNP 710. HER TROPONIN AT 0910 YESTE RDAY HAD INCREASED TO 20,014. [place] [address].1. A URINE CULTURE IS PENDING. AN ECHO WAS OBTAINED YESTERDAY AND REVEALED AN EJECTION FRACTION OF 46%. FAMILY CONTINUES TO DECLINE TRANSFER TO TERTIARY CARE FACILITY. PATIENT IS CURRENTLY RECEIVING NORMAL SALINE AT 30 ML/HR, HEPARIN IV DRIP, PROTONIX 40MG IV DAILY. METOPROLOL TARTRATE 25MG PO BID, ATORVASTATIN 40MG PO HS, LASIX 40MG IV BID, NITRO-BID OINTMENT Q8H, MORPHINE 2MG IV Q4H PRN, ATIVAN 1MG IV Q8H PRN. HER HOME MEDICATIONS OF ARICEPT, MOBIC, NAMENDA, AND SEROQUEL WERE RESUMED. UPON DISCHARGE, PATIENTS FAMILY REQUEST A HOSPICE REFERRAL. WE WILL ARRANGE REFERRAL UPON DISCHARGE. WE WILL DECREASE LASIX TO 20MG PO BID. OTHERWISE, WE WILL FOLLOW-UP WITH AM LABS AND CONTINUE TO MONITOR. TIME SPENT ON CLINICAL ASSESSMENT, REVIWING LABS AND IMAGING, DECISION MAKING, AND DOCUMENTATION GREATER THAN 45 MINUTES. - Past Medical Family Social History Past Med/Fam/Surg Hx: No changes since H&P Allergies: Allergies Penicillins Allergy (Verified 05/29/22 13:55) - Review of Systems ROS: No change since H&P - Vital Signs and I&O's Vital Signs: Temperature 98.3 F Pulse Rate [Left Brachial] 81 Pulse Rate 86 Respiratory Rate 20 Blood Pressure [Left Arm] 169/79 Blood Pressure [Right Arm] 139/68 Blood Pressure 181/79 O2 Sat by Pulse Oximetry 100 Intake and Output: Intake & Output 05/29/22 05/30/22 05/31/22 06/01/22 11:59 11:59 11:59 11:59 Intake Total 1413 / 1413 2663 / 2663 109 / 109 Output Total 200 / 200 800 / 800 Balance 1213 / 1213 1863 / 1863 109 / 109 - Physical Exam Oriented: Not Oriented Eyes: Normal Ear: Normal Nose: Normal Throat: Normal Respiratory: Generalized, Diminished Cardiovascular: Normal : Normal Auscultation: Bowel Sounds: Normal Palpation: Normal Tenderness: Epigastric Skin: Normal Musculoskeletal: Arm, Tender Psychiatric: Agitation Mood Description: Anxious Affect: Anxious Speech Pattern: Clear - Laboratory and Diagnostics Result Diagrams: 05/31/22 02:30 05/31/22 02:30 Labs: 05/30/22 18:30 Urine,Clean Catch Urine Culture - Preliminary Laboratory WBC 10.2 X10^3/uL (3.6-10.0) H 05/31/22 02:30 RBC 3.36 X10^6/uL (3.5-5.4) L 05/31/22 02:30 Hgb 10.2 g/dL (12.0-16.0) L 05/31/22 02:30 Hct 29.9 % (36.0-47.0) L 05/31/22 02:30 MCV 89.0 fL (80.0-100.0) 05/31/22 02:30 MCH 30.3 pg (27.0-34.0) 05/31/22 02:30 MCHC 34.0 g/dL (33.0-35.0) 05/31/22 02:30 RDW 14.1 % (11.6-16.5) 05/31/22 02:30 Plt Count 157 X10^3/uL (150.0-450.0) 05/31/22 02:30 MPV 10.3 fL (7.4-11.0) 05/31/22 02:30 Neut % (Auto) 74.9 % (42.0-75.0) 05/31/22 02:30 Lymph % (Auto) 12.0 % (21.0-51.0) L 05/31/22 02:30 [place] % (Auto) 12.2 % (0.0-13.0) 05/31/22 02:30 Eos % (Auto) 0.1 % (0.9-2.9) L 05/31/22 02:30 Baso % (Auto) 0.8 % (0.2-1.0) 05/31/22 02:30 Neut # (Auto) 7.6 x10^3/uL (2.2-4.8) H 05/31/22 02:30 Lymph # (Auto) 1.2 X10^3/uL (1.3-2.9) L 05/31/22 02:30 [place] # (Auto) 1.2 x10^3/uL (0.3-0.8) H 05/31/22 02:30 Eos # (Auto) 0.0 x10^3/uL (0.0-0.2) 05/31/22 02:30 Baso # (Auto) 0.1 X10^3/uL (0.0-0.1) 05/31/22 02:30 Absolute Nucleated RBC 0.0 /100WBC 05/31/22 02:30 PT 13.3 SECONDS (11.8-14.3) 05/29/22 16:30 INR Target Range - 05/29/22 16:30 INR 1.04 (0.8-1.3) 05/29/22 16:30 APTT 72.7 SECONDS (22.9-36.5) H 05/31/22 09:36 PTT Comment - 05/31/22 09:36 Sodium 130 mmol/L (136-145) L 05/31/22 02:30 Corrected Sodium 131 mmol/L (136-145) L 05/31/22 02:30 Potassium 3.9 mmol/L (3.5-5.1) 05/31/22 02:30 Chloride 98 mmol/L (98-107) 05/31/22 02:30 Carbon Dioxide 24.7 mmol/L (21-32) 05/31/22 02:30 BUN 14 mg/dL (7-18) 05/31/22 02:30 Creatinine 0.96 mg/dL (0.55-1.02) 05/31/22 02:30 Est GFR (MDRD) Af Amer > 60 (>60) 05/31/22 02:30 Est GFR (MDRD) Non-Af 59 (>60) 05/31/22 02:30 Glucose 127 mg/dL (65-99) H 05/31/22 02:30 Calcium 8.1 mg/dL (8.5-10.1) L 05/31/22 02:30 Corrected Calcium 9.0 mg/dL (8.5-10.1) 05/31/22 02:30 Total Bilirubin 0.50 mg/dL (0.2-1.0) 05/31/22 02:30 AST 389 Units/L (15-37) H 05/31/22 02:30 ALT 46 Units/L (12-78) 05/31/22 02:30 Alkaline Phosphatase 68 Units/L (46-116) 05/31/22 02:30 Creatine Kinase 1664 Units/L (26-192) H 05/30/22 09:10 Troponin I High Sens 30965.1 ng/L (4.0-60.0) H* 05/31/22 02:30 B-Natriuretic Peptide 710 pg/mL (0-79) H* 05/31/22 02:30 Total Protein 6.0 g/dL (6.4-8.2) L 05/31/22 02:30 Albumin 2.9 g/dL (3.4-5.0) L 05/31/22 02:30 Globulin 3.1 g/dL (2.5-4.5) 05/31/22 02:30 Albumin/Globulin Ratio 0.9 Ratio (1.1-2.1) L 05/31/22 02:30 Amylase 77 Units/L (25-115) 05/29/22 13:45 Lipase 155 Units/L (73-393) 05/29/22 13:45 Specimen Type Clean catch urine 05/29/22 13:30 Urine Color Yellow (YELLOW) 05/29/22 13:30 Urine Appearance Hazy (CLEAR) 05/29/22 13:30 Urine pH 6.0 (5.0 - 8.0) 05/29/22 13:30 Ur Specific [place] 1.025 (1.000-1.030) 05/29/22 13:30 Urine Protein 2+ (NEGATIVE) 05/29/22 13:30 Urine Glucose (UA) Negative (NEGATIVE) 05/29/22 13:30 Urine Ketones Negative (NEGATIVE) 05/29/22 13:30 Urine Blood 4+ (NEGATIVE) 05/29/22 13:30 Urine Nitrite Negative (NEGATIVE) 05/29/22 13:30 Urine Bilirubin Negative (NEGATIVE) 05/29/22 13:30 Urine Urobilinogen Normal (NORMAL) 05/29/22 13:30 Ur Leukocyte Esterase 1+ (NEGATIVE) 05/29/22 13:30 Urine RBC Tntc /HPF (0-3) A 05/29/22 13:30 Urine WBC 3-5 /HPF (0-5) 05/29/22 13:30 Ur Squamous Epith Cells Rare /HPF (NEGATIVE) 05/29/22 13:30 Urine Bacteria Trace /HPF (NEGATIVE) 05/29/22 13:30 Hyaline Casts Rare /LPF (NEGATIVE) 05/29/22 13:30 Urine Mucus Rare /HPF (NEGATIVE) 05/29/22 13:30 Ur Culture Indicated? No/not indicated 05/29/22 13:30 - Plan (1) Acute myocardial infarction Status: Acute Qualifiers: Myocardial infarction type: unspecified Involved coronary artery: unspeci fied coronary artery Qualified Code(s): I21.9 - Acute myocardial infarction, unspecified Plan: NORMAL SALINE AT 30 ML/HR, HEPARIN IV DRIP, PROTONIX 40MG IV DAILY. METOPROLOL TARTRATE 25MG PO BID, ATORVASTATIN 40MG PO HS, NITRO-BID OINTMENT Q8H, LASIX 20MG IV BID, MORPHINE 2MG IV Q4H PRN, ATIVAN 1MG IV Q8H PRN. RESUME HOME MEDS (2) Advanced dementia Status: Chronic Qualifiers: Dementia type: vascular dementia Dementia behavioral or psychological symptom: with agitation Qualified Code(s): F01.C11 - Vascular dementia, severe, with agitation (3) Hypothyroidism Status: Chronic Qualifiers: Hypothyroidism type: acquired Qualified Code(s): E03.9 - Hypothyroidism, unspecified (4) Arthritis Status: Chronic
[2022-05-31] MEDS ORDERED: NITRO-BID OINT 2% UD (E.R. USE ONLY) ONE (14:13)
[2022-05-31] MEDS: ATIVAN INJ 2 MG VIAL IVP PRN (15:12)
[2022-05-31 16:21] LABS: BILIRUBIN,URINE NEGATIVE (NEGATIVE); BLOOD/HEMOGLOBIN,URINE 5+ (NEGATIVE); GLUCOSE, URINE NEGATIVE (NEGATIVE); KETONES,URINE NEGATIVE (NEGATIVE); LEUKOCYTE ESTERASE ,URINE NEGATIVE (NEGATIVE); NITRITES,URINE NEGATIVE (NEGATIVE); PROTEIN,URINE NEGATIVE (NEGATIVE); UROBILINOGEN,URINE NORMAL (NORMAL)
[2022-05-31 16:31] LABS: APPEARANCE,URINE CLEAR (CLEAR); BACTERIA,URINE TRACE /HPF (NEGATIVE); COLOR,URINE PALE YELLOW (YELLOW); RBC,URINE 30-50 /HPF (0-3); SQUAMOUS EPITHELIAL CELL,UR RARE /HPF (NEGATIVE)
[2022-05-31] MEDS ORDERED: HEPARIN SODIUM INJ 5000 UNITS IVP ONE (16:51)
[2022-05-31] MEDS ORDERED: HEPARIN SODIUM INJ 5000 UNITS ONE (16:56)
[2022-05-31] MEDS ORDERED: LASIX IVP SCH (17:30)
[2022-05-31] MEDS: LIPITOR TAB 40 MG PO SCH (21:34)
[2022-05-31] MEDS: ARICEPT TAB 10 MG PO SCH (21:34)
[2022-05-31] MEDS: NAMENDA TAB 10 MG PO SCH (21:35)
[2022-06-01] MEDS: NS 1,000 ML IV 1,000 ML IV SCH ×2 (00:42→14:01)
[2022-06-01] MEDS: NITRO-BID OINT 2% Multi-Dose tube TD SCH ×3 (05:21→21:16)
[2022-06-01] MEDS: SYNTHROID 50 mcg TAB PO SCH (05:30)
[2022-06-01 06:00] LABS: BASOPHILS % (AUTO) 0.2 % (0.2-1.0); EOSINOPHILS % (AUTO) 0.3 % (0.9-2.9); HEMATOCRIT 31.6 % (36.0-47.0); HEMOGLOBIN 10.6 g/dL (12.0-16.0); LYMPHOCYTES # (AUTO) 1.1 X10^3/uL (1.3-2.9); LYMPHOCYTES % (AUTO) 11.6 % (21.0-51.0); MEAN CORPUSCULAR HGB CONC 33.5 g/dL (33.0-35.0); MEAN CORPUSCULAR VOLUME 89.4 fL (80.0-100.0); MONOCYTES # (AUTO) 1.2 x10^3/uL (0.3-0.8); MONOCYTES % (AUTO) 12.8 % (0.0-13.0); NEUTROPHILS # (AUTO) 7.1 x10^3/uL (2.2-4.8); NEUTROPHILS % (AUTO) 75.1 % (42.0-75.0); RED BLOOD COUNT 3.53 X10^6/uL (3.5-5.4); WHITE BLOOD COUNT 9.4 X10^3/uL (3.6-10.0)
[2022-06-01] MEDS ORDERED: HEPARIN SODIUM INJ 5000 UNITS IVP ONE (06:21)
[2022-06-01 06:35] LABS: ALANINE AMINOTRANSFERASE 39 Units/L (12-78); ALBUMIN 2.7 g/dL (3.4-5.0); ALKALINE PHOSPHATASE 75 Units/L (46-116); ASPARTATE AMINO TRANSFERASE 214 Units/L (15-37); BLOOD UREA NITROGEN 15 mg/dL (7-18); CALCIUM 8.2 mg/dL (8.5-10.1); CARBON DIOXIDE 28.2 mmol/L (21-32); CHLORIDE 101 mmol/L (98-107); COR CA(FOR HYPOALB) 9.2 mg/dL (8.5-10.1); CREATININE 1.19 mg/dL (0.55-1.02); SODIUM 136 mmol/L (136-145); TOTAL PROTEIN 6.3 g/dL (6.4-8.2); eGFR NON BLACK RACES 46 (>60)
[2022-06-01] MEDS: PROTONIX INJ 40 MG VIAL IVP SCH (09:17)
[2022-06-01] MEDS: LASIX IVP SCH ×2 (09:18→17:00)
[2022-06-01] MEDS: LOPRESSOR TAB 25 MG PO SCH ×2 (11:30→20:37)
[2022-06-01] MEDS: PLAVIX PO SCH (11:30)
[2022-06-01] MEDS: MOBIC TAB 15 MG PO SCH ×2 (11:35→20:38)
--- NOTE | 2022-06-01 14:18 | RAD ---
HISTORY:Chest pain, abnormal EKGStudy: Single view chestComparison:05/29/2022Findings:Single upright portable view submitted. There is atelectasis at the lung bases. No effusion or pneumothorax.Cardiac and mediastinal contours are within normal limits .The soft tissues are intact .IMPRESSION:Bibasilar atelectasis. No acute findings.Electronically signed by: YINA GOLDBERG (Jun 01, 2022 14:17:09)
[2022-06-01] MEDS ORDERED: RESTORIL CAP 15 MG PO PRN (17:34)
[2022-06-01] MEDS ORDERED: K-RIDER 10 MEQ/NS 100 ML 10 MEQ/100 ML BAG IV PRN (20:25)
[2022-06-01] MEDS ORDERED: POTASSIUM CHLORIDE LIQ 20 MEQ UDC PO PRN (20:25)
[2022-06-01] MEDS ORDERED: KLOR-CON PO PRN (20:25)
[2022-06-01] MEDS ORDERED: MICRO K EXTEN CAP 10 MEQ PO PRN (20:25)
[2022-06-01] MEDS ORDERED: K-DUR TAB 20 MEQ PO PRN (20:25)
[2022-06-01] MEDS: ARICEPT TAB 10 MG PO SCH (20:37)
[2022-06-01] MEDS: LIPITOR TAB 40 MG PO SCH (20:37)
[2022-06-01] MEDS: NAMENDA TAB 10 MG PO SCH (20:37)
[2022-06-01] MEDS: SEROquel TAB 25 mg PO SCH (20:38)
[2022-06-01] MEDS ORDERED: LEVOPHED INJ (VIAL) 8 MG in D5W 250 ML IV 250 ML IV PRN (21:39)
[2022-06-01] MEDS ORDERED: LEVOPHED 8 MG/250 ML IV *PREMIX 8 MG/250 ML PLAST..BAG IV ONE (21:42)
[2022-06-01] MEDS ORDERED: LEVOPHED 8 MG/250 ML IV *PREMIX 8 MG/250 ML PLAST..BAG IV PRN (21:45)
[2022-06-02 05:15] LABS: BASOPHILS % (AUTO) 0.4 % (0.2-1.0); EOSINOPHILS % (AUTO) 0.6 % (0.9-2.9); HEMATOCRIT 29.8 % (36.0-47.0); HEMOGLOBIN 10.1 g/dL (12.0-16.0); LYMPHOCYTES # (AUTO) 1.3 X10^3/uL (1.3-2.9); LYMPHOCYTES % (AUTO) 18.4 % (21.0-51.0); MEAN CORPUSCULAR HEMOGLOBIN 29.9 pg (27.0-34.0); MEAN CORPUSCULAR HGB CONC 33.7 g/dL (33.0-35.0); MEAN CORPUSCULAR VOLUME 88.7 fL (80.0-100.0); MEAN PLATELET VOLUME 11.6 fL (7.4-11.0); MONOCYTES # (AUTO) 0.8 x10^3/uL (0.3-0.8); MONOCYTES % (AUTO) 11.8 % (0.0-13.0); NEUTROPHILS % (AUTO) 68.8 % (42.0-75.0); RED BLOOD COUNT 3.36 X10^6/uL (3.5-5.4); WHITE BLOOD COUNT 7.2 X10^3/uL (3.6-10.0)
[2022-06-02] MEDS: NITRO-BID OINT 2% Multi-Dose tube TD SCH (05:15)
[2022-06-02] MEDS: NS 1,000 ML IV 1,000 ML IV SCH (05:16)
[2022-06-02] MEDS: SYNTHROID 50 mcg TAB PO SCH (05:36)
[2022-06-02 05:41] LABS: ALBUMIN 2.5 g/dL (3.4-5.0); CALCIUM 8.2 mg/dL (8.5-10.1); CARBON DIOXIDE 30.3 mmol/L (21-32); COR CA(FOR HYPOALB) 9.4 mg/dL (8.5-10.1); CREATININE 1.35 mg/dL (0.55-1.02); MAGNESIUM 1.6 mg/dL (2.0-2.9); TOTAL PROTEIN 6.2 g/dL (6.4-8.2)
[2022-06-02] MEDS: MAGNESIUM SULFATE 1 GRAM/100 mL PREMIX 1 G/100 ML BAG IV PRN ×2 (06:04→08:16)
[2022-06-02] MEDS: PLAVIX PO SCH (08:14)
[2022-06-02] MEDS: LOPRESSOR TAB 25 MG PO SCH (08:14)
[2022-06-02] MEDS: SEROquel TAB 25 mg PO SCH (08:14)
[2022-06-02] MEDS: MOBIC TAB 15 MG PO SCH (08:14)
[2022-06-02] MEDS: PROTONIX INJ 40 MG VIAL IVP SCH (08:15)
[2022-06-02] MEDS: LASIX IVP SCH (08:15)
[2022-06-02 10:19] VITALS: BP 106/58
== END 2022-06-02 11:00 | disposition hospice, home (50) | DRG 281 ==
LOC: MED/SURG → OBSVTOIN 12:41 → ICU 16:00
PROVIDERS: ADMIT Internal Medicine; ATTEND Internal Medicine
DX: M19.90 Unspecified osteoarthritis, unspecified site; I50.9 Heart failure, unspecified; E03.8 Other specified hypothyroidism; I11.0 Hypertensive heart disease with heart failure; F01.C11 Vascular dementia, severe, with agitation; I21.9 Acute myocardial infarction, unspecified; F02.80 Dementia in other diseases classified elsewhere, unspecified severity, without behavioral disturbance, psychotic disturbance, mood disturbance, and anxiety; R70.0 Elevated erythrocyte sedimentation rate; J30.89 Other allergic rhinitis; R10.84 Generalized abdominal pain; R77.8 Other specified abnormalities of plasma proteins; R94.31 Abnormal electrocardiogram [ECG] [EKG]; R06.02 Shortness of breath; R07.89 Other chest pain; R79.1 Abnormal coagulation profile